=== PATIENT | male | born 1980 | race Two or more races ===

== ENCOUNTER → 2024-08-08 | Day surgery (SDC) | payer MEDICAID ==
[2024-08-05 11:54] LABS: Urine Bacteria None Seen /hpf (None Seen)
[2024-08-05 12:20] LABS: INR 0.97 (0.9-1.15); Partial Thromboplastin Time 26.4 SEC (24.5-34.5); Prothrombin Time 10.3 sec (9.3-11.8)
[2024-08-05 12:23] LABS: Basophils # (auto) 0.1 10 ^3/uL (0-0.2); Basophils % (auto) 0.6 % (0.0-2.0); Eosinophils # (auto) 0.1 10 ^3/uL (0-0.8); Eosinophils % (auto) 1.3 % (0.0-7.0); Lymphocytes # (auto) 3.6 10 ^3/uL (0.4-5.4); Lymphocytes % (auto) 40.1 % (10.0-50.0); Mean Corpuscular Hemoglobin 30.5 pg (28.0-32.0); Mean Corpuscular Hgb Conc. 34.2 g/dL (32.0-36.0); Mean Corpuscular Volume 89.3 fL (80.0-100.0); Monocytes # (auto) 0.6 10 ^3/uL (0-1.3); Monocytes % (auto) 7.1 % (0.0-12.0); Neutrophils # (auto) 4.6 10 ^3/uL (1.6-8.6); Neutrophils % (auto) 50.9 % (37.0-80.0); Nucleated Red Blood Cells % 0.1 %; Platelet Count (auto) 219 10^3/uL (140-450); Red Blood Cells 4.93 10^6/uL (4.5-5.90); White Blood Cell 8.9 10^3/uL (4.4-10.8)
[2024-08-05 12:29] LABS: Urine Blood 1+ /uL (Negative); Urine Budding Yeast OCCASIONAL /hpf (None Seen); Urine Clarity Clear (Clear); Urine Color Yellow (Yellow); Urine Mucus FEW (None Seen); Urine Protein, UAD Negative (Negative); Urine Specific Gravity 1.029 (1.001-1.035); Urine Squamous Epithelial Cell None Seen /hpf (<5); Urine Urobilinogen Normal (Negative); Urine WBC 1 /hpf (0 - 3); Urine pH 5.5 (5.0-9.0)
[2024-08-05 13:17] LABS: Alanine Aminotransferase 39 U/L (7-40); Alkaline Phosphatase 62 U/L (46-116); Anion Gap 6 (5-15); Aspartate Aminotransferase 26 U/L (13-40); BUN/Creatinine Ratio 17.1 (10.0-20.0); Bilirubin, Total 0.6 mg/dL (0.2-1.0); Blood Urea Nitrogen 12 mg/dL (9-23); Calcium 9.5 mg/dL (8.7-10.4); Carbon Dioxide 26 mmol/L (20-31); Chloride 107 mmol/L (98-107); Sodium 139 mmol/L (136-145)
[2024-08-05 13:23] LABS: Glucose 179 mg/dL (74-106)
[~2024-08-08] VITALS: Ht 170.2 cm; Wt 117.9 kg
[~2024-08-08] MED LIST: ATOR20TA PO; DICL75TA3 PO; KETAMINE 50mg/ML 1ml syringe ONE; METF-489 PO; METOCLOPRAMIDE HCL 5MG/ml INJ 2ml VIAL IV ONE; ONDANSETRON HCL 4 MG/2 ML VIAL IV ONE; ONDANSETRON HCL 4 MG/2 ML VIAL ONE; PIO30T PO
[2024-08-08 08:23] VITALS: TEMP 97.6
--- NOTE | 2024-08-08 08:25 | DVHHP2 ---
GI H&P Pre-Op Assessment Date: 08/08/24 Chief complaint: colon cancer screening HPI: per clinic note Past medical history: per clinic note Past surgical history: per clinic note Family history: per clinic note Physical exam: General: NAD, AAOX3 HEENT: PERRL, no scleral icterus, normal hearing, gums without lesions or bleeding, oropharynx clear without erythema or exudate. Neck: Supple without enlargement of the thyroid, or lymphadenopathy. Chest: Normal size and shape, no tenderness, lung [place] clear to auscultation and percussion, nonlabored breathing. Heart: RRR, no murmur Abdomen: non-distended, no tenderness to palpation, +BS, no hepatosplenomegaly Extremities: no edema Neurological: CN II-XII intact, sensation intact in all extremities, 5+ strength in all extremities Skin: No rashes, No jaundice Assessment: - colon cancer screening Plan: - Colonoscopy - Risks (bleeding, infection, perforation, reaction to sedation medications and cardiopulmonary arrest) and benefit of the procedure were explained to patient. Patient agrees to undergo the procedure. ZACHRAY HELMS MD Aug 08, 2024 08:24
--- NOTE | 2024-08-08 08:26 | DVHOP2 ---
Operative Report DATE OF OPERATION: 08/08/24 PROCEDURE: Colonoscopy. PREOPERATIVE INDICATION: The patient is a 44 -year-old male undergoing colonoscopy for colon cancer screening. POSTOPERATIVE DIAGNOSES: 1. Few diverticulosis PROCEDURE PERFORMED BY: Dylon Huang M.D. SCOPE: Olympus videocolonoscope. ASA CLASS: 3 PREOPERATIVE MEDICATIONS: MAC with Dr Smith PROCEDURE IN DETAIL: After obtaining an informed consent, the patient was placed on left lateral decubitus position. He was then sedated with the above medications. A rectal examination was performed that was normal. The colonos cope was then passed through the anus into the rectosigmoid and through the descending, transverse, and ascending colon up to the cecum with visualization of the appendiceal orifice, base of the cecum and the ileocecal valve. No mass or polyp was observed. There was a few diverticulosis. The colonoscope was then withdrawn. The patient tolerated the procedure well without difficulty. WITHDRAWAL TIME: 6 minutes QUALITY OF THE PREP: [place] Bowel Prep score: 7 COMPLICATIONS : None SPECIMENS: None DISPOSITION: D/C to home PLAN: 1. Repeat colonoscopy in 10 years for colon cancer screening. DYLON HUANG MD Aug 08, 2024 08:26
--- NOTE | 2024-08-08 08:26 | DVHDS2 ---
Physician Discharge Progress N Final Diagnosis: Diverticulosis Operations or Procedures: Operations or Procedures Colonoscopy Condition on Discharge: Good Disposition: Home Discharge Instructions: Diet: Regular Activity: No Restrictions, As Tolerated Medications: Resume previous home medications Follow Up Care: Discharge Statement: "Patient was advised to return to the ER or call 911 if any headaches, dizziness, shortness of breath, chest pain, abdominal pain, bleeding, fevers, or worsening of medical condition. Patient was counseled about treatment plan, medications, possible side effects, patientverbalized understanding. All questions were answered to the best of my ability. This discharge took greater then 30 minutes in planning, reviewing documentation, counseling the patient, and discussing with other team members." ZACHARY HELMS MD Aug 08, 2024 08:26
[2024-08-08 08:55] VITALS: BP 129/91; PULSE 67; RESP 21; O2SAT 98
== END | disposition home or self-care (01) ==
LOC: GI 06:47
PROVIDERS: ATTEND Internal Medicine Gastroenterology
DX: K92.2 Gastrointestinal hemorrhage, unspecified (principal); E66.9 Obesity, unspecified; E11.9 Type 2 diabetes mellitus without complications; F17.210 Nicotine dependence, cigarettes, uncomplicated; E78.5 Hyperlipidemia, unspecified; Z79.84 Long term (current) use of oral hypoglycemic drugs; Z79.899 Other long term (current) drug therapy
CPT/HCPCS: 36415; 45378; 80053; 81001; 82962; 85025; 85610; 85730; J2405; J7030